=== PATIENT | male | born 1985 | race Caucasian/White ===

== ENCOUNTER → 2018-08-06 | Outpatient (CLI) | payer OTHER ==
--- NOTE | 2018-08-07 08:38 | Diagnostic Imaging Report ---
MRI of the right ankle without contrast. History: Ankle pain. Decreased range of motion. Calcaneofibular ligament sprain. Decreased range of motion Technique: Utilizing a high-field 1.5T magnet, the following sequences were acquired: PD FS in all 3 planes with additional axial PD. Comparison: None. Findings: Achilles tendon and plantar fascia: The Achilles tendon and plantar fascia are normal. Cartilage and bone: Negative for osteochondral lesion of the tibiotalar and subtalar joints. There is a nondisplaced obliquely oriented intra-articular fracture through the posterior aspect of the distal tibia with associated bone marrow edema and adjacent soft tissue edema. This is best seen on sagittal image 13 and axial image 13. Medial ankle: The deltoid ligament complex is intact. The medial flexor tendons are normal. There is a physiologic amount of fluid within the tendon sheath of FHL. Lateral ankle: There is a high-grade tear of the anterior talofibular ligament and calcaneofibular ligaments. The posterior talofibular ligaments are intact. There is an effusion/synovitis in the anterior lateral gutter. There is a sprain/partial tear of the anterior syndesmotic ligament. The posterior syndesmotic ligament is intact. The peroneal tendons are normal. Anterior ankle: The anterior extensor tendons are normal. Other findings: There is a tibiotalar joint effusion and synovitis. Impression: Nondisplaced obliquely oriented intra-articular fracture through the posterior aspect of the distal tibia with associated bone marrow edema and adjacent soft tissue edema. High-grade tear of the anterior talofibular ligament and calcaneofibular ligaments. The posterior talofibular ligaments are intact. There is an effusion/synovitis in the anterior lateral gutter. There is a sprain/partial tear of the anterior syndesmotic ligament Signed by: Dr. Raheem Hernandez M.D. on 08/07/2018 8:35 AM
== END ==
LOC: MRI 16:48
PROVIDERS: ATTEND Family Medicine
DX: S93.411D Sprain of calcaneofibular ligament of right ankle, subsequent encounter (principal)